=== PATIENT | male | born 1965 | race Caucasian/White ===

== ENCOUNTER 2017-06-21 09:53 | Emergency (ER) | payer MEDICAID ==
[~2017-06-21] VITALS: Ht 190.5 cm; Wt 83.9 kg
[2017-06-21] MEDS ORDERED: LAMO150T2 PO (10:16)
[2017-06-21] MEDS ORDERED: LEVE1000 PO (10:16)
== END 2017-06-21 11:00 | disposition home or self-care (01) ==
LOC: ER 09:53
DX: G40.909 Epilepsy, unspecified, not intractable, without status epilepticus (principal); Z76.0 Encounter for issue of repeat prescription; Z88.0 Allergy status to penicillin
CPT/HCPCS: A4663